=== PATIENT | female | born 1990 | race African-American/Black ===

== ENCOUNTER 2020-07-29 01:50 | Emergency (ER) | payer OTHER ==
[~2020-07-29] VITALS: Ht 152.4 cm; Wt 46.9 kg
[~2020-07-29 01:50] MED LIST: BACTRIM1 TAB PO; LEVAQUIN750 MG PO; PREDNISONE1 MG PO
[2020-07-29 02:07] VITALS: Ht 152.4 cm; Wt 46.9 kg
[2020-07-29 03:53] LABS: BASOPHIL % 0 % (0.2-1.3); PLATELET COUNT 212 x10^3mcL (179-408); RED CELL DISTRIBUTION WIDTH 11.5 % (12.3-17.7)
[2020-07-29 04:19] LABS: CARBON DIOXIDE 22.3 mmol/L (21-32); CHLORIDE SERUM 104 mmol/L (98-107); CREATININE SERUM 1.1 mg/dL (0.6-1.0); GFR1 > 60 mL/min; GLUCOSE SERUM 146 mg/dL (74-106); SODIUM SERUM 139 mmol/L (136-145)
[2020-07-29 04:23] LABS: ALBUMIN 3.5 g/dL (3.4-5.0); ALKALINE PHOSPHATASE 71 U/L (46-116); ALT/SGPT 59 U/L (14-59); AST/SGOT 84 U/L (15-37); BILIRUBIN TOTAL 0.26 mg/dL (0.20-1.00); LIPASE 191 IU/L (73-393); TOTAL PROTEIN, SERUM 7.7 g/dL (6.4-8.2)
[2020-07-29 04:25] LABS: AMYLASE 127 U/L (25-115)
[2020-07-29] MEDS ORDERED: ONDANSETRON4 M3 PO (04:32)
[2020-07-29] MEDS ORDERED: bentyl PO (04:32)
[2020-07-29 04:59] VITALS: BP 112/74
== END 2020-07-29 04:59 | disposition home or self-care (01) ==
LOC: ED 01:50
PROVIDERS: Specialist
DX: K52.89 Other specified noninfective gastroenteritis and colitis (principal); Z98.890 Other specified postprocedural states
CPT/HCPCS: J1885; J2550; J7030; Q0162